=== PATIENT | female | born 1965 | race Caucasian/White ===

== ENCOUNTER 2017-10-02 22:26 | Inpatient (IN) | payer MEDICAID ==
[2017-10-02] MEDS ORDERED: Metoclopramide 10 MG/2 ML SDV IVPUSH ONE (23:11)
[2017-10-02] MEDS ORDERED: HYDROmorphone 0.5 MG/0.5 ML SYRINGE IVPUSH ONE (23:11)
[2017-10-02] MEDS ORDERED: Dextrose 5%-0.9% NaCl 1,000 ML IV SCH (23:15)
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
[2017-10-03] MEDS ORDERED: Ondansetron 4 MG/2 ML SDV IVPUSH ONE ×3 (00:37→01:47)
[2017-10-03] MEDS ORDERED: Lidocaine 2% Jelly 10 ML Urojet MUCMEM ONE (01:45)
[2017-10-03] MEDS ORDERED: diphenhydrAMINE 50 MG/ML SDV IVPUSH ONE (01:47)
[2017-10-03] MEDS ORDERED: HYDROmorphone 0.5 MG/0.5 ML SYRINGE IVPUSH ONE (01:47)
[2017-10-03] MEDS ORDERED: D5 1/2 NS w/ 20 mEq/L KCl 1,000 ML IV SCH (02:30)
[2017-10-03] MEDS ORDERED: HYDROmorphone 0.5 MG/0.5 ML SYRINGE IVPUSH PRN ×2 (03:26→07:48)
[2017-10-03] MEDS ORDERED: Metoclopramide 10 MG/2 ML SDV IVPUSH PRN (03:26)
[2017-10-03] MEDS ORDERED: Sodium Chloride 0.9% 1,000 ML IV SCH (03:30)
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
[2017-10-03] MEDS ORDERED: LORazepam 2 MG/ML SDV IVPUSH PRN ×2 (07:46→09:29)
[2017-10-03] MEDS ORDERED: Ketorolac 30 MG/ML SDV IVPUSH SCH (08:00)
[2017-10-03] MEDS ORDERED: Ondansetron 4 MG/2 ML SDV IVPUSH PRN (08:34)
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
[2017-10-03] MEDS ORDERED: hydrALAZINE 20 MG/ML SDV IVPUSH PRN (09:29)
[2017-10-03] MEDS ORDERED: Metoprolol Tartrate 5 MG/5 ML SDV IVPUSH PRN (09:29)
[2017-10-03] MEDS: Famotidine 20 MG/2 ML SDV IVPUSH SCH ×2 (09:52→21:00)
[2017-10-03] MEDS: Metoclopramide 10 MG/2 ML SDV IVPUSH SCH ×3 (10:09→21:00)
--- NOTE | 2017-10-03 10:21 | CR ---
Abdomen: Supine view of the abdomen was obtained. Comparison: No prior abdominal x-ray. Calcifications are seen within the pelvis which are compatible with phleboliths. Sclerotic area is noted within the right iliac bone most likely due to bone island. Bowel gas pattern is normal. Impression: 1. Incidental findings. Diagnostic code #2
--- NOTE | 2017-10-03 10:21 | CT ---
CT abdomen and pelvis Technique: Multiple axial sections were obtained from above the dome of the diaphragm inferiorly through the pubic symphysis. Intravenous and oral contrast was utilized. Delayed images were also obtained through the abdomen and pelvis. Comparison: Prior abdominal x-ray of 10/02/17. Prior abdominal ultrasound of 12/15/15 is available. Findings: 2.6 cm enhancing mass is identified within the right lobe of the liver. This becomes isodense to the liver on delayed images. No additional abnormality is identified within the liver. Visualized lung bases show nothing acute. Spleen appears within normal limits. Adrenal glands show no nodule. Kidneys show symmetric contrast enhancement without hydronephrosis or mass. Pancreas appears within normal limits. Gallbladder is collapsed. Aorta shows mild atherosclerotic change without aneurysm. No pelvic mass or adenopathy is seen. No free fluid is seen. Slightly prominent small bowel loops are seen within the left upper abdomen. This appears to be within jejunum and most likely represents a partial small bowel obstruction from adhesions. Appendix is not visualized with certainty. Bone window settings were reviewed which appear within normal limits for the patient's age. Delayed images show contrast within the ureters and bladder. Minimal air is noted within the bladder and likely representing previous instrumentation, please correlate. Impression: 1. 2.6 cm mass within the right lobe of the liver. This may represent a hemangioma although nuclear medicine RBC SPECT study could be performed to confirm. This finding was not definitely seen on previous abdominal ultrasound. 2. Slightly prominent proximal jejunal loops most likely representing a mild partial small bowel obstruction from adhesions. 3. Other incidental findings. Diagnostic code #3 I agree with preliminary report from [facility], finalized at 10/03/17, 3:43 AM Central Time
[2017-10-03] MEDS ORDERED: Meperidine 50 MG/ML Vial IVPUSH PRN (11:40)
--- NOTE | 2017-10-03 11:54 | PCM.SN ---
- Free Text/Narrative Note: Patient seen and examined at bedside. Informed her about her diagnosis, prognosis and discharge care plan. She is still nauseous and complaining of some back pain. She still has NGT in with minimal gastric output. CT scan revealed a 2.6 cm enhancing mass on the right lobe o likely represent a hemangioma. Dilated loops of partial small bowel obstruction in the left mid abdomen with a transition zone noted in the left mid-abdomen consistent with a small bowel obstruction The cause of obstruction is unclear but may be secondary to adhesions. Her UA was not quite suggestive of UTI. Plan is conservative management at tis point. Will encourage her to ambulate, start a prokinetic agent and add Demerol (synthetic opiate pain medication) to alternate with Toradol for pain management.
[2017-10-03] MEDS ORDERED: Ketorolac 30 MG/ML SDV IVPUSH PRN (14:00)
[2017-10-03] MEDS: D5 1/2 NS w/ 20 mEq/L KCl 1,000 ML IV SCH ×2 (16:37→23:56)
[2017-10-04] MEDS: Metoclopramide 10 MG/2 ML SDV IVPUSH SCH ×3 (04:32→16:36)
[2017-10-04] MEDS: D5 1/2 NS w/ 20 mEq/L KCl 1,000 ML IV SCH (06:24)
--- NOTE | 2017-10-04 07:13 | PCM.PN ---
- General Info Date of Service: 10/04/17 Admission Dx/Problem (Free Text): Admission Diagnosis/Problem Admission Diagnosis/Problem Small bowel obstruction Subjective Update: Follow Up Functional Status: Reports: Pain Controlled, Ambulating, Urinating. Denies: New Symptoms - Review of Systems General: Denies: Fever, Weakness, Fatigue, Malaise, Chills HEENT: Reports: No Symptoms Pulmonary: Denies: Shortness of Breath Cardiovascular: Denies: Palpitations, Dyspnea on Exertion Gastrointestinal: Reports: Flatus. Denies: Abdominal Pain, Decreased Appetite, Diarrhea, Nausea, Vomiting Genitourinary: Reports: No Symptoms Musculoskeletal: Reports: No Symptoms Skin: Denies: Cyanosis, Mottled, Pallor, Diaphoresis, Pruritis, Rash Neurological: Denies: Confusion, Dizziness, Difficulty Walking, Weakness, Gait Disturbance Psychiatric: Denies: Depression, Anxiety, Agitation, Hallucinations Systems Review Comment:: No significant overnight or acute issues. She feels much better this AM. She reports having bowel movements x2: one last night and this morning. She also reports having more flatulence. She has no complaints except for the NGT. Her vitals are stable and her morning labs are fairly unremarkable. - Patient Data Vitals - Most Recent: Last Vital Signs Temp 36.7 C 10/03/17 20:45 Pulse 76 10/03/17 20:45 Resp 12 10/03/17 20:45 BP 127/87 10/03/17 20:45 Pulse Ox 100 10/03/17 20:45 Weight - Most Recent: 65.635 kg I&O - Last 24 Hours: Intake & Output 10/03/17 10/04/17 10/04/17 22:59 06:59 14:59 Intake Total 1769 1727 Output Total 1470 850 Balance 299 877 Lab Results Last 24 Hours: Laboratory Results - last 24 hr 10/03/17 10/03/17 10/03/17 Range/Units 06:55 06:55 06:55 WBC (3.98-10.04) K/mm3 RBC (3.98-5.22) M/mm3 Hgb (11.2-15.7) gm/L Hct (34.1-44.9) % MCV (79.4-94.8) fl MCH (25.6-32.2) pg MCHC (32.2-35.5) g/dl RDW Std Deviation (36.4-46.3) fL Plt Count (182-369) K/mm3 MPV (9.4-12.3) fl Neut % (Auto) (34.0-71.1) % Lymph % (Auto) (19.3-51.7) % [place] % (Auto) (4.7-12.5) % Eos % (Auto) (0.7-5.8) Baso % (Auto) (0.1-1.2) % Neut # (Auto) (1.56-6.13) K/mm3 Lymph # (Auto) (1.18-3.74) K/mm3 [place] # (Auto) (0.24-0.36) K/mm3 Eos # (Auto) (0.04-0.36) K/mm3 Baso # (Auto) (0.01-0.08) K/mm3 Neutrophils % (Manual) 87 H (40-60) % Band Neutrophils % 1 (0-10) % Lymphocytes % (Manual) 12 L (20-40) % Atypical Lymphs % 0 % Monocytes % (Manual) 0 L (2-10) % Eosinophils % (Manual) 0 L (0.7-5.8) % Basophils % (Manual) 0 L (0.1-1.2) Platelet Estimate Adequate RBC Morph Comment Normal Sodium 136 (136-145) mEq/L Potassium 4.1 (3.5-5.1) mEq/L Chloride 102 (98-107) mEq/L Carbon Dioxide 27 (21-32) mEq/L Anion Gap 11.1 (5-15) BUN 15 (7-18) mg/dL Creatinine 1.0 (0.55-1.02) mg/dL Est Cr Clr Drug Dosing 60.21 mL/min Estimated GFR (MDRD) 58 (>60) mL/min BUN/Creatinine Ratio 15.0 (14-18) Glucose 189 H (74-106) mg/dL Lactic Acid 0.8 (0.4-2.0) mmol/L Calcium 8.9 (8.5-10.1) mg/dL Magnesium 2.1 (1.8-2.4) mg/dl Total Bilirubin 0.3 (0.2-1.0) mg/dL AST 22 (15-37) U/L ALT 23 (14-59) U/L Alkaline Phosphatase 64 (46-116) U/L Total Protein 7.6 (6.4-8.2) g/dl Albumin 4.1 (3.4-5.0) g/dl Globulin 3.5 gm/dL Albumin/Globulin Ratio 1.2 (1-2) // Range/Units 05:58 WBC 8.03 (3.98-10.04) K/mm3 RBC 3.89 L (3.98-5.22) M/mm3 Hgb 12.0 (11.2-15.7) gm/L Hct 36.4 (34.1-44.9) % MCV 93.6 (79.4-94.8) fl MCH 30.8 (25.6-32.2) pg MCHC 33.0 (32.2-35.5) g/dl RDW Std Deviation 41.7 (36.4-46.3) fL Plt Count 276 (182-369) K/mm3 MPV 10.9 (9.4-12.3) fl Neut % (Auto) 69.8 (34.0-71.1) % Lymph % (Auto) 20.3 (19.3-51.7) % [place]anner % (Auto) 8.3 (4.7-12.5) % Eos % (Auto) 1.4 (0.7-5.8) Baso % (Auto) 0.1 (0.1-1.2) % Neut # (Auto) 5.60 (1.56-6.13) K/mm3 Lymph # (Auto) 1.63 (1.18-3.74) K/mm3 [place] # (Auto) 0.67 H (0.24-0.36) K/mm3 Eos # (Auto) 0.11 (0.04-0.36) K/mm3 Baso # (Auto) 0.01 (0.01-0.08) K/mm3 Neutrophils % (Manual) (40-60) % Band Neutrophils % (0-10) % Lymphocytes % (Manual) (20-40) % Atypical Lymphs % % Monocytes % (Manual) (2-10) % Eosinophils % (Manual) (0.7-5.8) % Basophils % (Manual) (0.1-1.2) Platelet Estimate RBC Morph Comment Sodium (136-145) mEq/L Potassium (3.5-5.1) mEq/L Chloride (98-107) mEq/L Carbon Dioxide (21-32) mEq/L Anion Gap (5-15) BUN (7-18) mg/dL Creatinine (0.55-1.02) mg/dL Est Cr Clr Drug Dosing mL/min Estimated GFR (MDRD) (>60) mL/min BUN/Creatinine Ratio (14-18) Glucose (74-106) mg/dL Lactic Acid (0.4-2.0) mmol/L Calcium (8.5-10.1) mg/dL Magnesium (1.8-2.4) mg/dl Total Bilirubin (0.2-1.0) mg/dL AST (15-37) U/L ALT (14-59) U/L Alkaline Phosphatase (46-116) U/L Total Protein (6.4-8.2) g/dl Albumin (3.4-5.0) g/dl Globulin gm/dL Albumin/Globulin Ratio (1-2) Med Orders - Current: Current Medications Famotidine (Pepcid) 20 mg IVPUSH BID [facility] Last Admin: 10/03/17 21:00 Dose: 20 mg Hydralazine HCl (Apresoline) 20 mg IVPUSH Q4H PRN PRN Reason: Hypertension Hydromorphone HCl (Dilaudid) 0.5 mg IVPUSH Q4H PRN PRN Reason: Pain Potassium Chloride/Dextrose/Sod Cl (D5 1/2 Ns W/ 20 Meq/L Kcl) 1,000 mls @ 150 mls/hr IV ASDIRECTED [facility] Last Admin: 10/04/17 06:24 Dose: 150 mls/hr Ketorolac Tromethamine (Toradol) 30 mg IVPUSH Q8H PRN PRN Reason: Pain Levothyroxine Sodium (Levothyroxine) 112 mcg PO ACBREAKFAST [facility] Lorazepam (Ativan) 0.5 mg IVPUSH Q12H PRN PRN Reason: Anxiety Lorazepam (Ativan) 2 mg IVPUSH Q4H PRN PRN Reason: Seizures Magnesium Sulfate (Pharmacy To Dose - Magnesium Replacement) 0 dose .XX ASDIRECTED PRN PRN Reason: RX TO WATCH MAG LEVELS Meperidine HCl (Meperidine) 50 mg IVPUSH Q4H PRN PRN Reason: Pain Metoclopramide HCl (Reglan) 5 mg IVPUSH Q6H [facility] Last Admin: 10/04/17 04:32 Dose: 5 mg Metoprolol Tartrate (Lopressor) 5 mg IVPUSH Q4H PRN PRN Reason: Tachycardia Ondansetron HCl (Zofran) 4 mg IVPUSH Q8H PRN PRN Reason: Nausea/Vomiting Potassium Chloride (Pharmacy To Dose - Potassium Replacement) 0 dose .XX ASDIRECTED PRN PRN Reason: RX TO WATCH K LEVELS Discontinued Medications Diphenhydramine HCl (Benadryl) 25 mg IVPUSH ONETIME ONE Stop: 10/03/17 01:48 Last Admin: 10/03/17 02:00 Dose: 25 mg Hydromorphone HCl (Dilaudid) 1 mg IVPUSH ONETIME ONE Stop: 10/02/17 23:12 Last Admin: 10/02/17 23:31 Dose: 1 mg Hydromorphone HCl (Dilaudid) 0.5 mg IVPUSH ONETIME ONE Stop: 10/03/17 01:48 Last Admin: 10/03/17 02:00 Dose: 0.5 mg Hydromorphone HCl (Dilaudid) 0.5 mg IVPUSH Q2H PRN PRN Reason: Pain Dextrose/Sodium Chloride (Dextrose 5%-Normal Saline) 1,000 mls @ 500 mls/hr IV ASDIRECTED [facility] Last Admin: 10/02/17 23:31 Dose: 500 mls/hr Potassium Chloride/Dextrose/Sod Cl (D5 1/2 Ns W/ 20 Meq/L Kcl) 1,000 mls @ 150 mls/hr IV ASDIRECTED [facility] Last Admin: 10/03/17 02:24 Dose: 150 mls/hr Sodium Chloride (Normal Saline) 1,000 mls @ 150 mls/hr IV ASDIRECTED [facility] Last Admin: 10/03/17 10:05 Dose: 150 mls/hr Ketorolac Tromethamine (Toradol) 30 mg IVPUSH Q8H [facility] Stop: 10/04/17 08:01 Last Admin: 10/03/17 09:52 Dose: 30 mg Lidocaine HCl (Xylocaine 2% Jelly) 10 ml MUCMEM ONETIME ONE Stop: 10/03/17 01:46 Last Admin: 10/03/17 02:01 Dose: 10 ml Metoclopramide HCl (Reglan) 7.5 mg IVPUSH ONETIME ONE Stop: 10/02/17 23:12 Last Admin: 10/02/17 23:31 Dose: 7.5 mg Metoclopramide HCl (Reglan) 7.5 mg IVPUSH Q6H PRN PRN Reason: Nausea Ondansetron HCl (Zofran) 4 mg IVPUSH ONETIME ONE Stop: 10/03/17 00:38 Last Admin: 10/03/17 00:41 Dose: 4 mg Ondansetron HCl (Zofran) 4 mg IVPUSH ONETIME ONE Stop: 10/03/17 00:40 Last Admin: 10/03/17 00:41 Dose: Not Given Ondansetron HCl (Zofran) 4 mg IVPUSH ONETIME ONE Stop: 10/03/17 01:48 Last Admin: 10/03/17 02:00 Dose: 4 mg - Exam General: Alert, Oriented, Cooperative, No Acute Distress HEENT: Pupils Equal, Pupils Reactive, EOMI, Mucous Membr. Moist/[place], Other (NGT ) Neck: Supple, Trachea Midline, No JVD, No Thyromegaly Lungs: Clear to Auscultation, Normal Respiratory Effort Cardiovascular: Regular Rate, Regular Rhythm GI/Abdominal Exam: Normal Bowel Sounds, Soft, Non-Tender, No Organomegaly, No Distention, No Abnormal Bruit, No Mass (Female) Exam: Deferred Back Exam: Normal Inspection, Decreased Range of Motion Extremities: Normal Inspection, Normal Range of Motion, Non-Tender, No Pedal Edema, Normal Capillary Refill Peripheral Pulses: 2+: Dorsalis Pedis (L), Dorsalis Pedis (R) Skin: Warm, Dry, Intact Neurological: No New Focal Deficit Psy/Mental Status: Alert, Normal Affect, Normal Mood - Problem List Review Problem List Initiated/Reviewed/Updated: Yes - My Orders Last 24 Hours: My Active Orders 10/03/17 09:29 LORazepam [Ativan] 2 mg IVPUSH Q4H PRN Metoprolol Tartrate [Lopressor] 5 mg IVPUSH Q4H PRN hydrALAZINE [Apresoline] 20 mg IVPUSH Q4H PRN 10/03/17 09:30 Magnesium Rep Pharmacy to Dose [Pharmacy to Dose - Magnesium Replacement] 0 dose .XX ASDIRECTED PRN Potassium Rep Pharmacy to Dose [Pharmacy to Dose - Potassium Replacement] 0 dose .XX ASDIRECTED PRN 10/03/17 10:00 Metoclopramide [Reglan] 5 mg IVPUSH Q6H 10/03/17 11:40 Meperidine 50 mg IVPUSH Q4H PRN 10/03/17 14:00 Ketorolac [Toradol] 30 mg IVPUSH Q8H PRN 10/04/17 07:00 EKG Documentation Completion [RC] ASDIRECTED EKG 12 Lead [EK] Routine - Plan Plan:: Assessment/Plan: Acute: Small Bowel Obstruction, Improved - Most likely from 2/2 Adhesions - Carries a hx/o umbilical hernia repair - Risk factors: Recent SSRI and Benzodaizepine--> could slow gut movement and High Calcium intake may cause constipation - NGT with no to minimal output - Only medical management; will continue current treatment - Continue to ambulate as tolerated Right Hepatic Lobe Mass - 2.6 Centimeter in Size, not new according to patient. She had it before but her follow up U/S revealed nothing - Could represent hemangioma - RBC SPECT study is recommended by radiologist - Patient made aware about this abnormal finding and will discuss it with PCP on follow up appointment Chronic: Hypothyroidism Anxiety/Panic Attack Depression, was recently on Escitalopram Osteopenia Bone Density 05/10/2016, on Calcium Supplement Hx/o PTSD Plan: She is clinically much better Discontinue NGT Start clear liquid diet and advanced as tolerated Discontinue IVF once current bag is done General Surgery following Recommend screening colonoscopy in 3-4 weeks (she is 4 years behind) Discontinue IV Reglan after second dose today DVT/GI Prophylaxis: H2B and SCDs Additional orders as above Code status: 1 Possible d/c in AM
[2017-10-04] MEDS: Levothyroxine 112 MCG Tab PO SCH (07:37)
[2017-10-04] MEDS ORDERED: Sodium Chloride 0.9% 10 ML Syringe FLUSH PRN (08:11)
--- NOTE | 2017-10-04 08:14 | PCM.CONSN ---
- General Info Date of Service: 10/04/17 Functional Status: Reports: Pain Controlled, Ambulating, Urinating - Review of Systems Gastrointestinal: Reports: No Symptoms, Flatus - Patient Data Vitals - Most Recent: Last Vital Signs Temp 36.7 C 10/03/17 20:45 Pulse 76 10/03/17 20:45 Resp 12 10/03/17 20:45 BP 127/87 10/03/17 20:45 Pulse Ox 100 10/03/17 20:45 Weight - Most Recent: 65.635 kg I&O - Last 24 Hours: Intake & Output 10/03/17 10/04/17 10/04/17 22:59 06:59 14:59 Intake Total 1769 1727 Output Total 1470 850 100 Balance 299 877 -100 Lab Results Last 24 Hours: Laboratory Results - last 24 hr 10/04/17 10/04/17 10/04/17 Range/Units 05:58 05:58 05:58 WBC 8.03 (3.98-10.04) K/mm3 RBC 3.89 L (3.98-5.22) M/mm3 Hgb 12.0 (11.2-15.7) gm/L Hct 36.4 (34.1-44.9) % MCV 93.6 (79.4-94.8) fl MCH 30.8 (25.6-32.2) pg MCHC 33.0 (32.2-35.5) g/dl RDW Std Deviation 41.7 (36.4-46.3) fL Plt Count 276 (182-369) K/mm3 MPV 10.9 (9.4-12.3) fl Neut % (Auto) 69.8 (34.0-71.1) % Lymph % (Auto) 20.3 (19.3-51.7) % [place] % (Auto) 8.3 (4.7-12.5) % Eos % (Auto) 1.4 (0.7-5.8) Baso % (Auto) 0.1 (0.1-1.2) % Neut # (Auto) 5.60 (1.56-6.13) K/mm3 Lymph # (Auto) 1.63 (1.18-3.74) K/mm3 [place] # (Auto) 0.67 H (0.24-0.36) K/mm3 Eos # (Auto) 0.11 (0.04-0.36) K/mm3 Baso # (Auto) 0.01 (0.01-0.08) K/mm3 Sodium 141 (136-145) mEq/L Potassium 4.1 (3.5-5.1) mEq/L Chloride 110 H (98-107) mEq/L Carbon Dioxide 24 (21-32) mEq/L Anion Gap 11.1 (5-15) BUN 9 (7-18) mg/dL Creatinine 1.0 (0.55-1.02) mg/dL Est Cr Clr Drug Dosing 60.21 mL/min Estimated GFR (MDRD) 58 (>60) mL/min BUN/Creatinine Ratio 9.0 L (14-18) Glucose 128 H (74-106) mg/dL Lactic Acid 0.7 (0.4-2.0) mmol/L Calcium 8.2 L (8.5-10.1) mg/dL Magnesium 1.8 (1.8-2.4) mg/dl C-Reactive Protein < 0.2 (<1.0) mg/dL Med Orders - Current: Current Medications Famotidine (Pepcid) 20 mg IVPUSH BID [facility] Last Admin: 10/03/17 21:00 Dose: 20 mg Hydralazine HCl (Apresoline) 20 mg IVPUSH Q4H PRN PRN Reason: Hypertension Hydromorphone HCl (Dilaudid) 0.5 mg IVPUSH Q4H PRN PRN Reason: Pain Potassium Chloride/Dextrose/Sod Cl (D5 1/2 Ns W/ 20 Meq/L Kcl) 1,000 mls @ 150 mls/hr IV ASDIRECTED [facility] Last Admin: 10/04/17 06:24 Dose: 150 mls/hr Ketorolac Tromethamine (Toradol) 30 mg IVPUSH Q8H PRN PRN Reason: Pain Levothyroxine Sodium (Levothyroxine) 112 mcg PO ACBREAKFAST [facility] Last Admin: 10/04/17 07:37 Dose: 112 mcg Lorazepam (Ativan) 0.5 mg IVPUSH Q12H PRN PRN Reason: Anxiety Lorazepam (Ativan) 2 mg IVPUSH Q4H PRN PRN Reason: Seizures Magnesium Sulfate (Pharmacy To Dose - Magnesium Replacement) 0 dose .XX ASDIRECTED PRN PRN Reason: RX TO WATCH MAG LEVELS Meperidine HCl (Meperidine) 50 mg IVPUSH Q4H PRN PRN Reason: Pain Metoclopramide HCl (Reglan) 5 mg IVPUSH Q6H [facility] Last Admin: 10/04/17 04:32 Dose: 5 mg Metoprolol Tartrate (Lopressor) 5 mg IVPUSH Q4H PRN PRN Reason: Tachycardia Ondansetron HCl (Zofran) 4 mg IVPUSH Q8H PRN PRN Reason: Nausea/Vomiting Potassium Chloride (Pharmacy To Dose - Potassium Replacement) 0 dose .XX ASDIRECTED PRN PRN Reason: RX TO WATCH K LEVELS Sodium Chloride (Saline Flush) 10 ml FLUSH ASDIRECTED PRN PRN Reason: Keep Vein Open Discontinued Medications Diphenhydramine HCl (Benadryl) 25 mg IVPUSH ONETIME ONE Stop: 10/03/17 01:48 Last Admin: 10/03/17 02:00 Dose: 25 mg Hydromorphone HCl (Dilaudid) 1 mg IVPUSH ONETIME ONE Stop: 10/02/17 23:12 Last Admin: 10/02/17 23:31 Dose: 1 mg Hydromorphone HCl (Dilaudid) 0.5 mg IVPUSH ONETIME ONE Stop: 10/03/17 01:48 Last Admin: 10/03/17 02:00 Dose: 0.5 mg Hydromorphone HCl (Dilaudid) 0.5 mg IVPUSH Q2H PRN PRN Reason: Pain Dextrose/Sodium Chloride (Dextrose 5%-Normal Saline) 1,000 mls @ [facility] Admin: 10/02/17 23:31 Dose: 500 mls/hr Potassium Chloride/Dextrose/Sod Cl (D5 1/2 Ns W/ 20 Meq/L Kcl) 1,000 mls @ 150 [facility] Last Admin: 10/03/17 02:24 Dose: 150 mls/hr Sodium Chloride (Normal Saline) 1,000 mls @ 150 mls/hr IV [facility] Last Admin: 10/03/17 10:05 Dose: 150 mls/hr Ketorolac Tromethamine (Toradol) 30 mg IVPUSH Q8H [facility] Stop: 10/04/17 08:01 Last Admin: 10/03/17 09:52 Dose: 30 mg Lidocaine HCl (Xylocaine 2% Jelly) 10 ml MUCMEM ONETIME ONE Stop: 10/03/17 01:46 Last Admin: 10/03/17 02:01 Dose: 10 ml Metoclopramide HCl (Reglan) 7.5 mg IVPUSH ONETIME ONE Stop: 10/02/17 23:12 Last Admin: 10/02/17 23:31 Dose: 7.5 mg Metoclopramide HCl (Reglan) 7.5 mg IVPUSH Q6H PRN PRN Reason: Nausea Ondansetron HCl (Zofran) 4 mg IVPUSH ONETIME ONE Stop: 10/03/17 00:38 Last Admin: 10/03/17 00:41 Dose: 4 mg Ondansetron HCl (Zofran) 4 mg IVPUSH ONETIME ONE Stop: 10/03/17 00:40 Last Admin: 10/03/17 00:41 Dose: Not Given Ondansetron HCl (Zofran) 4 mg IVPUSH ONETIME ONE Stop: 10/03/17 01:48 Last Admin: 10/03/17 02:00 Dose: 4 mg - Exam GI/Abdominal Exam: Soft, Non-Tender Consult PN Assessment/Plan Procedures: Procedures ANTINUCLEAR ANTIBODIES (01/06/15) ASSAY OF AMYLASE (05/06/14) ASSAY OF CK (CPK) (01/06/15) ASSAY OF FREE THYROXINE (07/23/17) ASSAY OF LIPASE (05/06/14) ASSAY THYROID STIM HORMONE (07/23/17) ASSAY TRIIODOTHYRONINE (T3) (01/06/15) C-REACTIVE PROTEIN (01/06/15) C-REACTIVE PROTEIN HS (12/01/13) COMP SCREEN MAMMOGRAM ADD-ON (03/27/15) COMPLETE CBC W/AUTO DIFF WBC (07/23/17) COMPREHEN METABOLIC PANEL (07/23/17) CT ABD & PELV 1/> REGNS (05/13/14) CULTURE AEROBIC IDENTIFY (12/01/13) CULTURE OTHR SPECIMN AEROBIC (10/23/16) CULTURE SCREEN ONLY (03/15/14) DXA BONE DENSITY AXIAL (05/10/16) ECHO EXAM OF ABDOMEN (12/15/15) ELECTROCARDIOGRAM TRACING (09/28/14) GLUCOSE BLOOD TEST (09/28/14) HPYLORI STOOL IA (03/24/15) METABOLIC PANEL TOTAL CA (06/14/16) MICROBE SUSCEPTIBLE PHYLLIS (12/01/13) MR-STAPH DNA AMP PROBE (09/01/14) POLYSOM 6/> YRS 4/> CORDELL (08/06/15) RBC SED RATE AUTOMATED (01/06/15) RHEUMATOID FACTOR TEST QUAL (01/06/15) ROUTINE VENIPUNCTURE (05/25/15) RPR UMBIL RONNIE REDUC > 5 YR (09/28/14) TTE W/DOPPLER COMPLETE (01/16/15) URINE BACTERIA CULTURE (06/09/14) URINE CULTURE/COLONY COUNT (10/23/16) VITAMIN D 25 HYDROXY (07/23/17) [place] VIRUS AB IGM (11/30/13) X-RAY EXAM OF COLLAR BONE (09/24/17) X-RAY EXAM OF ELBOW (07/26/15) X-RAY EXAM SI JOINTS 3/> VWS (03/23/15) X-RAY EXAM UNILAT RIBS/CHEST (09/24/17) (1) Small bowel obstruction SNOMED Code(s): 765666564 Code(s): K56.609 - UNSP INTESTNL OBST, UNSP TO PARTIAL VERSUS COMPLETE OBST Priority: Medium Current Visit: Yes Assessment:: Patient passing stool and gas per rectum suggesting return of bowel function. Problem List Initiated/Reviewed/Updated: Yes My Orders Last 24 Hours: My Active Orders 10/04/17 08:11 Sodium Chloride 0.9% [Saline Flush] 10 ml FLUSH ASDIRECTED PRN Convert IV to Saline Lock [OM.PC] Routine 10/04/17 Lunch Regular Diet [DIET] Plan: Regular diet after discontinuation of the nasogastric tube. If she tolerates her diet then consideration for discharge tomorrow per hospitalist.
[2017-10-04] MEDS ORDERED: Magnesium Sulfate/Water 2 GM in Premix Bag 1 BAG IV ONE ×2 (09:30→14:00)
[2017-10-04] MEDS: Famotidine 20 MG/2 ML SDV IVPUSH SCH (10:05)
[2017-10-04] MEDS: Acetaminophen 325 MG Tab PO PRN (17:01)
[2017-10-04] MEDS: Famotidine 20 MG Tab PO SCH (19:34)
[2017-10-04] MEDS ORDERED: Docusate Sodium 100 MG Cap PO PRN (19:36)
[2017-10-05] MEDS: Sodium Chloride 0.9% 1,000 ML ONE ×2 (01:40→01:47)
[2017-10-05] MEDS ORDERED: Sodium Chloride 0.9% 1,000 ML IV ONE ×3 (01:41→03:40)
[2017-10-05] MEDS: Famotidine 20 MG Tab PO SCH ×2 (01:46→08:11)
[2017-10-05] MEDS: Acetaminophen 325 MG Tab PO PRN (01:57)
[2017-10-05] MEDS: Levothyroxine 112 MCG Tab PO SCH (05:36)
--- NOTE | 2017-10-05 07:29 | PCM.SN ---
- Free Text/Narrative Note: Received a phone call chocolate refining roller hours from night charge nurse that patient' s got dizzy and complained of a headache after she walked over to the bathroom. When her vitals was checked, she was found hypotensive. According to the charge nurse, patient did not get any BP or Rate Control medications. She did however received 2L of NS bolus and her pressure responded well. Her most recent BP is 125/68 mmHg. This morning she appeared relatively well except she complained of frontal headache and sinus congestion. She was negative for sinus tenderness on manual palpation but definitely congested on visual examination. Patient takes Zyrtec- D for chronic rhinitis/congestion and drinks coffee routinely but has not had it since admission due to acute GI illness. Will provide her with nasal spray and fioricet for management of her sinus congestion and headache. Patient was advised to see an ENT outpatient for further evaluation of her chronic rhinitis/nasal congestion.
[2017-10-05 08:20] VITALS: BP 122/91
[2017-10-05] MEDS ORDERED: Acetaminophen/Butalbital/Caffeine 325-50-40 MG Tab PO ONE (08:33)
--- NOTE | 2017-10-05 08:56 | PCM.CONSN ---
- General Info Date of Service: 10/05/17 Functional Status: Reports: Pain Controlled, Tolerating Diet, Ambulating, Urinating, New Symptoms (Complained of headache which she managed with a couple coughing) - Review of Systems Gastrointestinal: Reports: No Symptoms - Patient Data Vitals - Most Recent: Last Vital Signs Temp 36.6 C 10/05/17 08:07 Pulse 65 10/05/17 08:07 Resp 16 10/05/17 08:07 BP 122/91 H 10/05/17 08:07 Pulse Ox 99 10/05/17 08:07 Weight - Most Recent: 64.909 kg I&O - Last 24 Hours: Intake & Output 10/04/17 10/05/17 10/05/17 22:59 06:59 14:59 Intake Total 2224 1300 Output Total 2500 3300 Balance -276 -1999 Lab Results Last 24 Hours: Laboratory Results - last 24 hr 10/05/17 10/05/17 10/05/17 Range/Units 05:16 05:16 05:16 WBC 7.70 (3.98-10.04) K/mm3 RBC 3.90 L (3.98-5.22) M/mm3 Hgb 12.6 (11.2-15.7) gm/L Hct 36.5 (34.1-44.9) % MCV 93.6 (79.4-94.8) fl MCH 32.3 H (25.6-32.2) pg MCHC 34.5 (32.2-35.5) g/dl RDW Std Deviation 41.8 (36.4-46.3) fL Plt Count 277 (182-369) K/mm3 MPV 10.4 (9.4-12.3) fl Neut % (Auto) 71.9 H (34.0-71.1) % Lymph % (Auto) 20.5 (19.3-51.7) % [place] % (Auto) 5.7 (4.7-12.5) % Eos % (Auto) 1.6 (0.7-5.8) Baso % (Auto) 0.3 (0.1-1.2) % Neut # (Auto) 5.54 (1.56-6.13) K/mm3 Lymph # (Auto) 1.58 (1.18-3.74) K/mm3 [place] # (Auto) 0.44 H (0.24-0.36) K/mm3 Eos # (Auto) 0.12 (0.04-0.36) K/mm3 Baso # (Auto) 0.02 (0.01-0.08) K/mm3 Sodium 143 (136-145) mEq/L Potassium 4.0 (3.5-5.1) mEq/L Chloride 112 H (98-107) mEq/L Carbon Dioxide 23 (21-32) mEq/L Anion Gap 12.0 (5-15) BUN 8 (7-18) mg/dL Creatinine 1.0 (0.55-1.02) mg/dL Est Cr Clr Drug Dosing 60.21 mL/min Estimated GFR (MDRD) 58 (>60) mL/min BUN/Creatinine Ratio 8.0 L (14-18) Glucose 100 (74-106) mg/dL Lactic Acid 0.5 (0.4-2.0) mmol/L Calcium 8.2 L (8.5-10.1) mg/dL Magnesium 2.1 (1.8-2.4) mg/dl C-Reactive Protein < 0.2 (<1.0) mg/dL Malik Results Last 24 Hours: Microbiology 10/02/17 23:27 Urine Culture - Preliminary Urine, Bladder Gram Positive Cocci Med Orders - Current: Current Medications Acetaminophen (Tylenol) 650 mg PO Q4H PRN PRN Reason: Pain/Fever Last Admin: 10/05/17 01:57 Dose: 650 mg Docusate Sodium (Colace) 100 mg PO DAILY PRN PRN Reason: Constipation Last Admin: 10/04/17 19:58 Dose: 100 mg Famotidine (Pepcid) 20 mg PO BID [facility] Last Admin: 10/05/17 08:11 Dose: 20 mg Hydralazine HCl (Apresoline) 20 mg IVPUSH Q4H PRN PRN Reason: Hypertension Hydromorphone HCl (Dilaudid) 0.5 mg IVPUSH Q4H PRN PRN Reason: Pain Ketorolac Tromethamine (Toradol) 30 mg IVPUSH Q8H PRN PRN Reason: Pain Levothyroxine Sodium (Levothyroxine) 112 mcg PO ACBREAKFAST [facility] Last Admin: 10/05/17 05:36 Dose: 112 mcg Lorazepam (Ativan) 0.5 mg IVPUSH Q12H PRN PRN Reason: Anxiety Lorazepam (Ativan) 2 mg IVPUSH Q4H PRN PRN Reason: Seizures Magnesium Sulfate (Pharmacy To Dose - Magnesium Replacement) 0 dose .XX ASDIRECTED PRN PRN Reason: RX TO WATCH MAG LEVELS Meperidine HCl (Meperidine) 50 mg IVPUSH Q4H PRN PRN Reason: Pain Metoprolol Tartrate (Lopressor) 5 mg IVPUSH Q4H PRN PRN Reason: Tachycardia Non-Formulary Medication (Cetirizine Hcl/Pseudoephedrine [Zyrtec-D]) 1 each PO DAILY [facility] Ondansetron HCl (Zofran) 4 mg IVPUSH Q8H PRN PRN Reason: Nausea/Vomiting Oxymetazoline HCl (Afrin Original 0.05% Nasal [place]) 15 ml MATEUS Q12HR PRN PRN Reason: Congestion Potassium Chloride (Pharmacy To Dose - Potassium Replacement) 0 dose .XX ASDIRECTED PRN PRN Reason: RX TO WATCH K LEVELS Sodium Chloride (Saline Flush) 10 ml FLUSH ASDIRECTED PRN PRN Reason: Keep Vein Open Discontinued Medications Acetaminophen/Butalbital/Caffeine (Fioricet 325-50-40 Mg) 1 tab PO ONETIME ONE Stop: 10/05/17 08:34 Diphenhydramine HCl (Benadryl) 25 mg IVPUSH ONETIME ONE Stop: 10/03/17 01:48 Last Admin: 10/03/17 02:00 Dose: 25 mg Famotidine (Pepcid) 20 mg IVPUSH BID [facility] Last Admin: 10/04/17 10:05 Dose: 20 mg Hydromorphone HCl (Dilaudid) 1 mg IVPUSH ONETIME ONE Stop: 10/02/17 23:12 Last Admin: 10/02/17 23:31 Dose: 1 mg Hydromorphone HCl (Dilaudid) 0.5 mg IVPUSH ONETIME ONE Stop: 10/03/17 01:48 Last Admin: 10/03/17 02:00 Dose: 0.5 mg Hydromorphone HCl (Dilaudid) 0.5 mg IVPUSH Q2H PRN PRN Reason: Pain Dextrose/Sodium Chloride (Dextrose 5%-Normal Saline) 1,000 mls @ 500 mls/hr IV ASDIRECTED [facility] Last Admin: 10/02/17 23:31 Dose: 500 mls/hr Potassium Chloride/Dextrose/Sod Cl (D5 1/2 Ns W/ 20 Meq/L Kcl) 1,000 mls @ 150 mls/hr IV ASDIRECTED [facility] Last Admin: 10/03/17 02:24 Dose: 150 mls/hr Sodium Chloride (Normal Saline) 1,000 mls @ 150 mls/hr IV ASDIRECTED [facility] Last Admin: 10/03/17 10:05 Dose: 150 mls/hr Potassium Chloride/Dextrose/Sod Cl (D5 1/2 Ns W/ 20 Meq/L Kcl) 1,000 mls @ 150 mls/hr IV ASDIRECTED [facility] Stop: 10/04/17 14:00 Last Admin: 10/04/17 06:24 Dose: 150 mls/hr Magnesium Sulfate 2 gm/ Premix 50 mls @ 25 mls/hr IV ONETIME ONE Stop: 10/04/17 11:29 Last Admin: 10/04/17 10:01 Dose: Not Given Magnesium Sulfate 2 gm/ Premix 50 mls @ 25 mls/hr IV ONETIME ONE Stop: 10/04/17 15:59 Last Admin: 10/04/17 14:39 Dose: 25 mls/hr Sodium Chloride (Normal Saline) Confirm Administered Dose 1,000 mls @ as directed .ROUTE .STK-MED ONE Stop: 10/05/17 01:35 Last Admin: 10/05/17 01:47 Dose: 1,000 mls/hr Sodium Chloride (Normal Saline) 1,000 mls @ 999 mls/hr IV ONETIME ONE Stop: 10/05/17 02:41 Last Admin: 10/05/17 01:47 Dose: Not Given Sodium Chloride (Normal Saline) 1,000 mls @ 999 mls/hr IV ONETIME ONE Stop: 10/05/17 03:40 Last Admin: 10/05/17 02:55 Dose: 999 mls/hr Sodium Chloride (Normal Saline) 1,000 mls @ 999 mls/hr IV ONETIME ONE Stop: 10/05/17 04:40 Last Admin: 10/05/17 07:51 Dose: Not Given Ketorolac Tromethamine (Toradol) 30 mg IVPUSH Q8H [facility] Stop: 10/04/17 08:01 Last Admin: 10/03/17 09:52 Dose: 30 mg Lidocaine HCl (Xylocaine 2% Jelly) 10 ml MUCMEM ONETIME ONE Stop: 10/03/17 01:46 Last Admin: 10/03/17 02:01 Dose: 10 ml Metoclopramide HCl (Reglan) 7.5 mg IVPUSH ONETIME ONE Stop: 10/02/17 23:12 Last Admin: 10/02/17 23:31 Dose: 7.5 mg Metoclopramide HCl (Reglan) 7.5 mg IVPUSH Q6H PRN PRN Reason: Nausea Metoclopramide HCl (Reglan) 5 mg IVPUSH Q6H [facility] Last Admin: 10/04/17 16:36 Dose: 5 mg Ondansetron HCl (Zofran) 4 mg IVPUSH ONETIME ONE Stop: 10/03/17 00:38 Last Admin: 10/03/17 00:41 Dose: 4 mg Ondansetron HCl (Zofran) 4 mg IVPUSH ONETIME ONE Stop: 10/03/17 00:40 Last Admin: 10/03/17 00:41 Dose: Not Given Ondansetron HCl (Zofran) 4 mg IVPUSH ONETIME ONE Stop: 10/03/17 01:48 Last Admin: 10/03/17 02:00 Dose: 4 mg - Exam GI/Abdominal Exam: Soft, Non-Tender Consult PN Assessment/Plan Procedures: Procedures ANTINUCLEAR ANTIBODIES (01/06/15) ASSAY OF AMYLASE (05/06/14) ASSAY OF CK (CPK) (01/06/15) ASSAY OF FREE THYROXINE (07/23/17) ASSAY OF LIPASE (05/06/14) ASSAY THYROID STIM HORMONE (07/23/17) ASSAY TRIIODOTHYRONINE (T3) (01/06/15) C-REACTIVE PROTEIN (01/06/15) C-REACTIVE PROTEIN HS (12/01/13) COMP SCREEN MAMMOGRAM ADD-ON (03/27/15) COMPLETE CBC W/AUTO DIFF WBC (07/23/17) COMPREHEN METABOLIC PANEL (07/23/17) CT ABD & PELV 1/> REGNS (05/13/14) CULTURE AEROBIC IDENTIFY (12/01/13) CULTURE OTHR SPECIMN AEROBIC (10/23/16) CULTURE SCREEN ONLY (03/15/14) DXA BONE DENSITY AXIAL (05/10/16) ECHO EXAM OF ABDOMEN (12/15/15) ELECTROCARDIOGRAM TRACING (09/28/14) GLUCOSE BLOOD TEST (09/28/14) HPYLORI STOOL IA (03/24/15) METABOLIC PANEL TOTAL CA (06/14/16) MICROBE SUSCEPTIBLE MALIK (12/01/13) MR-STAPH DNA AMP PROBE (09/01/14) POLYSOM 6/> YRS 4/> CORDELL (08/06/15) RBC SED RATE AUTOMATED (01/06/15) RHEUMATOID FACTOR TEST QUAL (01/06/15) ROUTINE VENIPUNCTURE (05/25/15) RPR UMBIL RONNIE REDUC > 5 YR (09/28/14) TTE W/DOPPLER COMPLETE (01/16/15) URINE BACTERIA CULTURE (06/09/14) URINE CULTURE/COLONY COUNT (10/23/16) VITAMIN D 25 HYDROXY (07/23/17) [place] VIRUS AB IGM (11/30/13) X-RAY EXAM OF COLLAR BONE (09/24/17) X-RAY EXAM OF ELBOW (07/26/15) X-RAY EXAM SI JOINTS 3/> VWS (03/23/15) X-RAY EXAM UNILAT RIBS/CHEST (09/24/17) (1) Small bowel obstruction SNOMED Code(s): 378995607 Code(s): K56.609 - UNSP INTESTNL OBST, UNSP TO PARTIAL VERSUS COMPLETE OBST Priority: Medium Current Visit: Yes Assessment:: Tolerated regular diet yesterday and this morning. Ready for discharge. Problem List Initiated/Reviewed/Updated: Yes My Orders Last 24 Hours: My Active Orders 10/04/17 08:11 Sodium Chloride 0.9% [Saline Flush] 10 ml FLUSH ASDIRECTED PRN Convert IV to Saline Lock [OM.PC] Routine Plan: Okay for discharge if okay with the hospitalist.
[2017-10-05] MEDS ORDERED: PSEUDOEPHEDRINE PO SCH (09:00)
[2017-10-05] MEDS ORDERED: CETIRIZINE HCL PO SCH (09:00)
--- NOTE | 2017-10-05 09:17 | PCM.DCSUM1 ---
Discharge Summary - Hospital Course Brief History: 52 year old female with moderate-severe abdominal pain that began in the epigastic area, it is currently in the periumbilical region. The pain began approximately 1300 hour on 10/02/17. It was associated with nausea and vomiting. She has a past surgical history of umbilical hernia repair. Currently the pain is mild-moderate, a NGT has been placed in the ED. She is afebrile, has a loss of appetite. Prior to the current discomfort, she has been constipated for at least two days. She admits to flatus, denies symptoms. The patient has been admitted to [facility] with telemetry. She is a full code. Onset of Symptoms: Reports: Sudden Diagnosis: Stroke: No Modified Levasy Scale: No Symptoms at All Modified Levasy Scale Score: 0 - Discharge Data Discharge Date: 10/05/17 Discharge Disposition: Home, Self-Care 01 Condition: Good - Discharge Diagnosis/Problem(s) (1) SBO (small bowel obstruction) SNOMED Code(s): 330557031 ICD Code: K56.609 - UNSP INTESTNL OBST, UNSP TO PARTIAL VERSUS COMPLETE OBST Status: Resolved Problem Details: - 2/2 Adhesions (2) Liver mass, right lobe SNOMED Code(s): 775134982 ICD Code: R16.0 - HEPATOMEGALY, NOT ELSEWHERE CLASSIFIED Status: Acute (3) Nausea & vomiting SNOMED Code(s): 89227859 ICD Code: R11.2 - NAUSEA WITH VOMITING, UNSPECIFIED Status: Resolved Qualifiers: Vomiting type: unspecified Vomiting Intractability: unspecified Qualified Code(s): R11.2 - Nausea with vomiting, unspecified (4) Headache SNOMED Code(s): 80767133 ICD Code: R51 - HEADACHE Status: Acute Problem Details: - 2/2 Caffeine Withdrawal and Nasal Congestion Qualifiers: Headache type: unspecified Headache chronicity pattern: acute headache Intractability: not intractable Qualified Code(s): R51 - Headache (5) Nasal congestion due to prolonged use of decongestants SNOMED Code(s): 54336626 ICD Code: J31.0 - CHRONIC RHINITIS; T48.5X1A - POISONING BY OTH ANTI-CMN- COLD DRUGS, ACCIDENTAL, INIT Status: Acute Problem Details: - She takes Zyrtec-D daily - She has not it since admission - Patient Summary/Data Operative Procedure(s) Performed: None Complications: None Consults: Consultations 10/03/17 04:26 Consult to Physician [CONS] Routine Labs Pending at D/C: None Recommended Follow-up Testing/Procedures: Screening Colonoscopy in 6 weeks Planned Operative Procedure(s) after DC: Colonoscopy Hospital Course: The patient was primarily admitted for medical treatment of small bowel obstruction 2/2 adhesions from her previous GI- surgery. This was confirmed on CT scan upon admission. General Surgery was consulted but no additional testing or procedures recommended. Patient was primarily managed conservatively and she responded well to this treatment. Her hospital course was uncomplicated and the rest of her chronic medical illness remained stable during this admission. She was advised to drink plenty of water, continue with supplements and utilized OTC stool softener to reduced her risk of constipation. Patient was further advised to make sure she gets screening colonoscopy in 6 weeks. The patient and her expressed understanding and in agreement with the plans as discussed above. Her PCP, Melissa Rojas, was called and updated about her diagnosis, prognosis, and discharge care plan. - Patient Instructions Diet: Usual Diet as Tolerated Activity: As Tolerated Driving: May Drive Today Showering/Bathing: May Shower Notify Provider of: Fever, Increased Pain, Nausea and/or Vomiting Other/Special Instructions: - Resume all home medications and routine activities as tolerated. - Avoid if possible medications that could slow down gut movement (discuss with your family doctor). - Hydrate adequately, continue fiber supplement and consider OTC stool softener to prevent constipation. - Recommend screening colonoscopy in 6 weeks. - Call your family doctor for any questions or concerns after discharge from the hospital. - Follow up with PCP in 1-2 week to discuss follow up plan for your liver mass. - Come back or seek immediate care should your symptoms persist or get worse - Discharge Plan Home Medications: Home Meds ALPRAZolam [Alprazolam] 0.5 mg PO BID PRN 09/27/14 [History] Levothyroxine 112 mcg PO DAILY 09/27/14 [History] Calcium Carbonate/Vitamin D3 [Calcium 600 + Vit D Tablet] 1 tab PO DAILY [History] Ranitidine HCl 75 mg PO DAILY 10/02/17 [History] Psyllium Husk/Aspartame [Metamucil Fiber Singles Packet] 1 packet PO DAILY 10/03 [History] Cetirizine HCl/Pseudoephedrine [ZyrTEC-D] 1 each PO DAILY 10/04/17 [History] Patient Handouts: Small Bowel Obstruction, [id number], Nausea and Vomiting, Adult, [id number], Sinus Headache, [id number] Referrals: Melissa Rojas, [employer] [Primary Care Provider] - (Please call and schedule a post -hospital follow-up appointment with your primary care doctor in 1 to 2 weeks) - Discharge Summary/Plan Comment DC Time >30 min.: Yes (45 mins) Discharge Summary/Plan Comment: Discharge to Home - General Info Date of Service: 10/05/17 Admission Dx/Problem (Free Text: Admission Diagnosis/Problem Admission Diagnosis/Problem Small bowel obstruction Subjective Update: Follow Up Functional Status: Reports: Pain Controlled, Tolerating Diet, Ambulating, Urinating, New Symptoms - Review of Systems General: Denies: Fever, Weakness, Fatigue, Malaise, Chills HEENT: Reports: Headaches, Sinus Congestion. Denies: Dysphasia, Ear Pain, Eye Pain, Post Nasal Drip, Sore Throat, Rhinitis, Visual Changes Pulmonary: Denies: Shortness of Breath, Pleuritic Chest Pain, Cough, Wheezing Cardiovascular: Denies: Chest Pain, Dyspnea on Exertion, Lightheadedness Gastrointestinal: Reports: Flatus. Denies: Abdominal Pain, Constipation, Decreased Appetite, Diarrhea, Difficulty Swallowing, Nausea, Vomiting Genitourinary: Reports: No Symptoms Musculoskeletal: Reports: No Symptoms Skin: Denies: Mottled, Diaphoresis, Pruritis, Rash Neurological: Reports: Headache. Denies: Confusion, Difficulty Walking, Weakness, Gait Disturbance Psychiatric: Denies: Depression, Anxiety, Agitation, Hallucinations Systems Review Comment: As noted earlier, she had an episode of relative hypotension with symptoms of dizziness and headache. 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 She appears clinically stable and her headache and nasal congestion have improved. - Patient Data Vitals - Most Recent: Last Vital Signs Temp 36.6 C 10/05/17 08:07 Pulse 65 10/05/17 08:07 Resp 16 10/05/17 08:07 BP 122/91 H 10/05/17 08:07 Pulse Ox 99 10/05/17 08:07 Weight - Most Recent: 64.909 kg I&O - Last 24 hours: Intake & Output 10/04/17 10/05/17 10/05/17 22:59 06:59 14:59 Intake Total 2224 1300 Output Total 4915 3300 Balance -276 -1999 Lab Results - Last 24 hrs: Laboratory Results - last 24 hr 10/05/17 10/05/17 10/05/17 Range/Units 05:16 05:16 05:16 WBC 7.70 (3.98-10.04) K/mm3 RBC 3.90 L (3.98-5.22) M/mm3 Hgb 12.6 (11.2-15.7) gm/L Hct 36.5 (34.1-44.9) % MCV 93.6 (79.4-94.8) fl MCH 32.3 H (25.6-32.2) pg MCHC 34.5 (32.2-35.5) g/dl RDW Std Deviation 41.8 (36.4-46.3) fL Plt Count 277 (182-369) K/mm3 MPV 10.4 (9.4-12.3) fl Neut % (Auto) 71.9 H (34.0-71.1) % Lymph % (Auto) 20.5 (19.3-51.7) % [place] % (Auto) 5.7 (4.7-12.5) % Eos % (Auto) 1.6 (0.7-5.8) Baso % (Auto) 0.3 (0.1-1.2) % Neut # (Auto) 5.54 (1.56-6.13) K/mm3 Lymph # (Auto) 1.58 (1.18-3.74) K/mm3 [place] # (Auto) 0.44 H (0.24-0.36) K/mm3 Eos # (Auto) 0.12 (0.04-0.36) K/mm3 Baso # (Auto) 0.02 (0.01-0.08) K/mm3 Sodium 143 (136-145) mEq/L Potassium 4.0 (3.5-5.1) mEq/L Chloride 112 H (98-107) mEq/L Carbon Dioxide 23 (21-32) mEq/L Anion Gap 12.0 (5-15) BUN 8 (7-18) mg/dL Creatinine 1.0 (0.55-1.02) mg/dL Est Cr Clr Drug Dosing 60.21 mL/min Estimated GFR (MDRD) 58 (>60) mL/min BUN/Creatinine Ratio 8.0 L (14-18) Glucose 100 (74-106) mg/dL Lactic Acid 0.5 (0.4-2.0) mmol/L Calcium 8.2 L (8.5-10.1) mg/dL Magnesium 2.1 (1.8-2.4) mg/dl C-Reactive Protein < 0.2 (<1.0) mg/dL PHYLLIS Results - Last 24 hrs: Microbiology 10/02/17 23:27 Urine Culture - Preliminary Urine, Bladder Gram Positive Cocci Med Orders - Current: Current Medications Acetaminophen (Tylenol) 650 mg PO Q4H PRN PRN Reason: Pain/Fever Last Admin: 10/05/17 01:57 Dose: 650 mg Docusate Sodium (Colace) 100 mg PO DAILY PRN PRN Reason: Constipation Last Admin: 10/04/17 19:58 Dose: 100 mg Famotidine (Pepcid) 20 mg PO BID [facility] Last Admin: 10/05/17 08:11 Dose: 20 mg Hydralazine HCl (Apresoline) 20 mg IVPUSH Q4H PRN PRN Reason: Hypertension Hydromorphone HCl (Dilaudid) 0.5 mg IVPUSH Q4H PRN PRN Reason: Pain Ketorolac Tromethamine (Toradol) 30 mg IVPUSH Q8H PRN PRN Reason: Pain Levothyroxine Sodium (Levothyroxine) 112 mcg PO ACBREAKFAST [facility] Last Admin: 10/05/17 05:36 Dose: 112 mcg Lorazepam (Ativan) 0.5 mg IVPUSH Q12H PRN PRN Reason: Anxiety Lorazepam (Ativan) 2 mg IVPUSH Q4H PRN PRN Reason: Seizures Magnesium Sulfate (Pharmacy To Dose - Magnesium Replacement) 0 dose .XX ASDIRECTED PRN PRN Reason: RX TO WATCH MAG LEVELS Meperidine HCl (Meperidine) 50 mg IVPUSH Q4H PRN PRN Reason: Pain Metoprolol Tartrate (Lopressor) 5 mg IVPUSH Q4H PRN PRN Reason: Tachycardia Non-Formulary Medication (Cetirizine Hcl/Pseudoephedrine [Zyrtec-D]) 1 each PO DAILY [facility] Ondansetron HCl (Zofran) 4 mg IVPUSH Q8H PRN PRN Reason: Nausea/Vomiting Oxymetazoline HCl (Afrin Original 0.05% Nasal [place]) 15 ml MATEUS Q12HR PRN PRN Reason: Congestion Potassium Chloride (Pharmacy To Dose - Potassium Replacement) 0 dose .XX ASDIRECTED PRN PRN Reason: RX TO WATCH K LEVELS Sodium Chloride (Saline Flush) 10 ml FLUSH ASDIRECTED PRN PRN Reason: Keep Vein Open Discontinued Medications Acetaminophen/Butalbital/Caffeine (Fioricet 325-50-40 Mg) 1 tab PO ONETIME ONE Stop: 10/05/17 08:34 Diphenhydramine HCl (Benadryl) 25 mg IVPUSH ONETIME ONE Stop: 10/03/17 01:48 Last Admin: 10/03/17 02:00 Dose: 25 mg Famotidine (Pepcid) 20 mg IVPUSH BID [facility] Last Admin: 10/04/17 10:05 Dose: 20 mg Hydromorphone HCl (Dilaudid) 1 mg IVPUSH ONETIME ONE Stop: 10/02/17 23:12 Last Admin: 10/02/17 23:31 Dose: 1 mg Hydromorphone HCl (Dilaudid) 0.5 mg IVPUSH ONETIME ONE Stop: 10/03/17 01:48 Last Admin: 10/03/17 02:00 Dose: 0.5 mg Hydromorphone HCl (Dilaudid) 0.5 mg IVPUSH Q2H PRN PRN Reason: Pain Dextrose/Sodium Chloride (Dextrose 5%-Normal Saline) 1,000 mls @ 500 mls/hr IV ASDIRECTED [facility] Last Admin: 10/02/17 23:31 Dose: 500 mls/hr Potassium Chloride/Dextrose/Sod Cl (D5 1/2 Ns W/ 20 Meq/L Kcl) 1,000 mls @ 150 mls/hr IV ASDIRECTED [facility] Last Admin: 10/03/17 02:24 Dose: 150 mls/hr Sodium Chloride (Normal Saline) 1,000 mls @ 150 mls/hr IV ASDIRECTED [facility] Last Admin: 10/03/17 10:05 Dose: 150 mls/hr Potassium Chloride/Dextrose/Sod Cl (D5 1/2 Ns W/ 20 Meq/L Kcl) 1,000 mls @ 150 mls/hr IV ASDIRECTED [facility] Stop: 10/04/17 14:00 Last Admin: 10/04/17 06:24 Dose: 150 mls/hr Magnesium Sulfate 2 gm/ Premix 50 mls @ 25 mls/hr IV ONETIME ONE Stop: 10/04/17 11:29 Last Admin: 10/04/17 10:01 Dose: Not Given Magnesium Sulfate 2 gm/ Premix 50 mls @ 25 mls/hr IV ONETIME ONE Stop: 10/04/17 15:59 Last Admin: 10/04/17 14:39 Dose: 25 mls/hr Sodium Chloride (Normal Saline) Confirm Administered Dose 1,000 mls @ as directed .ROUTE .STK-MED ONE Stop: 10/05/17 01:35 Last Admin: 10/05/17 01:47 Dose: 1,000 mls/hr Sodium Chloride (Normal Saline) 1,000 mls @ 999 mls/hr IV ONETIME ONE Stop: 10/05/17 02:41 Last Admin: 10/05/17 01:47 Dose: Not Given Sodium Chloride (Normal Saline) 1,000 mls @ 999 mls/hr IV ONETIME ONE Stop: 10/05/17 03:40 Last Admin: 10/05/17 02:55 Dose: 999 mls/hr Sodium Chloride (Normal Saline) 1,000 mls @ 999 mls/hr IV ONETIME ONE Stop: 10/05/17 04:40 Last Admin: 10/05/17 07:51 Dose: Not Given Ketorolac Tromethamine (Toradol) 30 mg IVPUSH Q8H [facility] Stop: 10/04/17 08:01 Last Admin: 10/03/17 09:52 Dose: 30 mg Lidocaine HCl (Xylocaine 2% Jelly) 10 ml MUCMEM ONETIME ONE Stop: 10/03/17 01:46 Last Admin: 10/03/17 02:01 Dose: 10 ml Metoclopramide HCl (Reglan) 7.5 mg IVPUSH ONETIME ONE Stop: 10/02/17 23:12 Last Admin: 10/02/17 23:31 Dose: 7.5 mg Metoclopramide HCl (Reglan) 7.5 mg IVPUSH Q6H PRN PRN Reason: Nausea Metoclopramide HCl (Reglan) 5 mg IVPUSH Q6H [facility] Last Admin: 10/04/17 16:36 Dose: 5 mg Ondansetron HCl (Zofran) 4 mg IVPUSH ONETIME ONE Stop: 10/03/17 00:38 Last Admin: 10/03/17 00:41 Dose: 4 mg Ondansetron HCl (Zofran) 4 mg IVPUSH ONETIME ONE Stop: 10/03/17 00:40 Last Admin: 10/03/17 00:41 Dose: Not Given Ondansetron HCl (Zofran) 4 mg IVPUSH ONETIME ONE Stop: 10/03/17 01:48 Last Admin: 10/03/17 02:00 Dose: 4 mg - Exam General: Reports: Alert, Oriented, Cooperative, No Acute Distress HEENT: Reports: Pupils Equal, Pupils Reactive, EOMI, Mucous Membr. Moist/[place], Other (narrowed nasal passages with mild-mod swelling) Neck: Reports: Supple, Trachea Midline, No JVD. Denies: Lymphadenopathy Lungs: Reports: Clear to Auscultation, Normal Respiratory Effort Cardiovascular: Reports: Regular Rate, Regular Rhythm GI/Abdominal Exam: Normal Bowel Sounds, Soft, Non-Tender, No Organomegaly, No Distention, No Abnormal Bruit (Female) Exam: Deferred Rectal (Female) Exam: Deferred Back Exam: Reports: Normal Inspection, Full Range of Motion Extremities: Normal Inspection, Normal Range of Motion, Non-Tender, No Pedal Edema, Normal Capillary Refill Skin: Reports: Warm, Dry, Intact. Denies: Rash Neurological: Reports: No New Focal Deficit Psy/Mental Status: Reports: Alert, Normal Affect, Normal Mood
[2017-10-05] MEDS ORDERED: Oxymetazoline 0.05% Nasal Spray 15 ML Bottle NAS PRN (09:35)
== END 2017-10-05 12:22 | disposition home or self-care (01) | DRG 390 ==
LOC: JD.ED 22:26 → JD.MS 10-03 02:39
PROVIDERS: ADMIT Internal Medicine Cardiovascular Disease; ATTEND Internal Medicine Cardiovascular Disease
PROC: 0D9670Z Drainage of Stomach with Drainage Device, Via Natural or Artificial Opening (ICD-10-PCS; principal; 2017-10-03)
DX: K56.609 Unspecified intestinal obstruction, unspecified as to partial versus complete obstruction (principal); K56.51 Intestinal adhesions [bands], with partial obstruction; F41.9 Anxiety disorder, unspecified; E03.9 Hypothyroidism, unspecified; R53.83 Other fatigue; I95.9 Hypotension, unspecified; R51 Headache; J31.0 Chronic rhinitis; F32.9 Major depressive disorder, single episode, unspecified; R10.9 Unspecified abdominal pain; R11.2 Nausea with vomiting, unspecified; R53.81 Other malaise; M85.80 Other specified disorders of bone density and structure, unspecified site; D18.09 Hemangioma of other sites; Z87.891 Personal history of nicotine dependence; Z88.1 Allergy status to other antibiotic agents; Z88.0 Allergy status to penicillin; Z88.2 Allergy status to sulfonamides; Z79.899 Other long term (current) drug therapy; T43.225A Adverse effect of selective serotonin reuptake inhibitors, initial encounter; T50.3X5A Adverse effect of electrolytic, caloric and water-balance agents, initial encounter
CPT/HCPCS: 74018; 74177; 80053; 81001; 83690; 86140; 96361; 96374; 96375; 96376; 99285; J1170 ×2; J1200; J2405 ×2; J2765; J3480; J7042; 36415; 80048; 83605; 83735; 85007; 85025; 85027; 87086; 87088; 87186; A9270; A9270-GY; J1885; J3475; J7040

== ENCOUNTER 2017-12-16 07:36 | Day surgery (SDC) | payer MEDICAID ==
[~2017-12-16 07:36] MED LIST: Lactated Ringers 1,000 ML IV SCH; Lidocaine 1% 4 ML ONE; Lidocaine 1%/Sod Bicarbonate in NS 8.4% 1 ML Syringe IDERM PRN; Propofol 200 MG/20 ML SDV ONE; Sodium Chloride 0.9% 10 ML Syringe FLUSH PRN; fentaNYL 100 MCG/2 ML SDV ONE
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
[2017-12-16] MEDS ORDERED: Lactated Ringers 1,000 ML ONE (10:11)
--- NOTE | 2017-12-16 10:40 | PCM.OPNOTE ---
- General Post-Op/Procedure Note Date of Surgery/Procedure: 12/16/17 Operative Procedure(s): colonoscopy with biopsy Findings: small 3 mm sessile descending colon polyp Pre Op Diagnosis: screening colonoscopy, high risk (Family history - sister and father) Post-Op Diagnosis: screening colonoscopy, high risk (Family history - sister and father) Anesthesia Technique: [facility] [place] Primary Surgeon: Florencio Cobb Anesthesia Provider: Ninoska Bonilla Pathology: descending colon polyp Condition: Good Free Text/Narrative:: Indications for surgery: The patient is 52 yo female, with a family history of colon cancer (sister, father), here for initial screening colonoscopy. The patient was consented for colonoscopy with possible biopsy. Indications, risks, and benefits were discussed with the patient in detail. Description of procedure: After surgical consent was verified, the patient was brought to the main OR. A surgical time-out was performed to verify proper patient and proper procedure. Anesthesia performed monitored anesthesia care. A digital rectal exam was performed, which was normal. The colonoscope was inserted into the anus and advanced through the colon to the cecum. Location of the cecum was confirmed by presence of the appendiceal orifice and ileocecal valve. The scope was then withdrawn, with inspection of the colonic mucosa. Retroflexion was performed in the rectum. The remainder of the colon and rectum was normal. Withdrawal time was 12 minutes. There was a small 3 mm sessile polyp in the ascending colon, removed by cold forceps polypectomy. Blood loss was minimal. The patient tolerated the procedure well, was brought out of anesthesia, and transported to the PACU in stable condition. Florencio Cobb M.D., F.A.C.S. General Surgery Pager: [phone]
--- NOTE | 2017-12-16 11:09 | PCM48HPAN ---
Post Anesthesia Note - EVALUATION WITHIN 48HRS OF ANESTHETIC Vital Signs in Normal Range: Yes Patient Participated in Evaluation: Yes Respiratory Function Stable: Yes Airway Patent: Yes Cardiovascular Function Stable: Yes Hydration Status Stable: Yes Pain Control Satisfactory: Yes Nausea and Vomiting Control Satisfactory: Yes Mental Status Recovered: Yes Pulse Rate: 68 SaO2: 93 Resp Rate: 14 Temperature: 37.2 C Blood Pressure: 122/71 Pulse Rate: 74
[2017-12-16 11:22] VITALS: BP 110/70
== END 2017-12-16 11:26 | disposition home or self-care (01) ==
LOC: JD.SDS 07:36
PROVIDERS: ATTEND Student in an Organized Health Care Education/Training Program
DX: Z12.11 Encounter for screening for malignant neoplasm of colon (principal); K63.5 Polyp of colon; E03.9 Hypothyroidism, unspecified; M19.90 Unspecified osteoarthritis, unspecified site; F41.9 Anxiety disorder, unspecified; Z79.899 Other long term (current) drug therapy; Z88.0 Allergy status to penicillin; Z88.1 Allergy status to other antibiotic agents; Z88.2 Allergy status to sulfonamides; Z87.891 Personal history of nicotine dependence; Z80.0 Family history of malignant neoplasm of digestive organs
CPT/HCPCS: 45380; 93005; J2704; J3010; J7120; J2001

== ENCOUNTER 2018-04-16 09:30 | Emergency (ER) | payer SELFPAY ==
[2018-04-16] MEDS ORDERED: Sodium Chloride 0.9% 10 ML Syringe FLUSH PRN (10:01)
[2018-04-16] MEDS ORDERED: Prochlorperazine 10 MG/2 ML SDV IVPUSH ONE (10:03)
[2018-04-16] MEDS ORDERED: diphenhydrAMINE 50 MG/ML SDV IVPUSH ONE (10:04)
[2018-04-16] MEDS: Ketorolac 30 MG/ML SDV IVPUSH ONE ×2 (10:18→12:06)
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
[2018-04-16 12:08] VITALS: BP 130/83
--- NOTE | 2018-04-16 16:36 | CR ---
Chest: Portable view of the chest was obtained. Comparison: Prior chest x-ray of 09/24/17. Heart size and mediastinum are normal. Lungs are clear. Old healed right clavicle fracture is noted. Impression: 1. Nothing acute is appreciated on portable chest x-ray. Diagnostic code #2
== END 2018-04-16 12:05 | disposition home or self-care (01) ==
LOC: JD.ED 09:30
DX: R07.89 Other chest pain (principal); G43.909 Migraine, unspecified, not intractable, without status migrainosus; Z88.0 Allergy status to penicillin; Z79.899 Other long term (current) drug therapy
CPT/HCPCS: 36415; 71045; 80053; 84484; 85025; 93005; 96374; 96375; 99284; J0780; J1200; J1885